=== PATIENT | female | born 1995 | race African-American/Black ===

== ENCOUNTER 2018-01-03 14:51 | Emergency (ER) | payer OTHER, SELFPAY ==
[2018-01-03 14:52] VITALS: BP 114/68; PULSE 75; RESP 16; TEMP 36.9; O2SAT 96; BMI 28.5
--- NOTE | 2018-01-03 15:20 | ED.VISSUMM ---
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 Stepping off her truck when leg inverted, states heard a crack. Was able to limp and get back to her truck. No paresthesias. History of growth plate fracture as a child, no surgical intervention. No history of gastric ulcers or kidney injury. No falls or head injuries. Physical Examination: General: Alert and oriented ?3, no acute distress HEENT: Normocephalic, atraumatic. Moist mucosa membranes Neck: supple, nontender. Cardiovascular: Regular rate and rhythm, no murmurs Respiratory: Normal breath sounds, symmetric, no distress Abdomen: Soft, nontender, nondistended Extremities: Left lower extremity: Negative logroll, no knee tenderness. There was tenderness to the distal third of the fibula along with lateral malleolus. No medial mild tenderness. No deformities. Mild swelling lateral malleolus. Skin intact. No foot tenderness. Neurovascular intact. Neuro: no focal neurological deficits. Test Results: Left ankle/tib-fib: No fracture or dislocation Emergency Department Course and Treatment: Patient given Motrin and ice. X-rays obtained and negative. Discussed ankle sprain with patient. Rice therapy. She does have prescription Motrin at home. She will be given work restrictions. She will follow with [facility]. Treatment Plan: [] Disposition: Discharge Impression: Left ankle sprain This note was generated with [employer] dictation software. It may contain incorrect words, spelling, and punctuation that were not noted in review of the chart prior to signing ED Disposition - Plan for ED Patient: Disposition: Home or Assisted Living Chief Complaint: Lower Extremity Injury Diagnosis: Left ankle sprain Instructions: ED Sprain Ankle W X Ray Referrals: Guanako Bobby MD [Primary Care Provider] - [facility] [[facility] PHYSICI[facility]] - 3-5 Days
[2018-01-03] MEDS: Ibuprofen 600 MG Tablet PO (15:24)
== END 2018-01-03 16:41 | disposition home or self-care (01) ==
PROVIDERS: Emergency Provider Emergency Medicine; Family Provider Pediatrics; PCP Family Medicine
DX: S93.402A Sprain of unspecified ligament of left ankle, initial encounter (principal); X50.1XXA Overexertion from prolonged static or awkward postures, initial encounter; Y93.89 Activity, other specified; Y92.9 Unspecified place or not applicable; Y99.0 Civilian activity done for income or pay; J45.909 Unspecified asthma, uncomplicated
CPT/HCPCS: 73590; 73610; 99285

== ENCOUNTER 2018-03-16 13:31 | Emergency (ER) | payer SELFPAY ==
[2018-03-16 13:32] VITALS: BP 163/76; PULSE 77; RESP 18; TEMP 36.5; O2SAT 99; BMI 24.9
--- NOTE | 2018-03-16 13:52 | ED.RN ---
PT REPORTS DIZZINESS X1WEEK, STATES LT ARM NUMBNESS/WEAKNESS X2DAYS.
--- NOTE | 2018-03-16 13:54 | EKG12_ITS ---
Test Reason : Blood Pressure : / mmHG Vent. Rate : 069 BPM Atrial Rate : 069 BPM P-R Int : 132 ms QRS Dur : 076 ms QT Int : 370 ms P-R-T Axes : 053 032 033 degrees QTc Int : 396 ms Normal sinus rhythm with sinus arrhythmia Normal ECG Confirmed by JUNAID PENA, KALE ([id number]), movie editor BELLA BRANDT ([id number]) on 03/18/2018 1:25:21 PM Referred By: JUAN Confirmed By:KALE QUIROGA MD
--- NOTE | 2018-03-16 13:54 | CT_ITS ---
STUDY: CT BRAIN WITHOUT CONTRAST REASON FOR EXAM: Female, 22 years old. One week history of vertigo and left arm numbness. RADIATION DOSAGE (If Supplied By Facility): CTDIvol = ( 44.99 ) mGy, DLP = ( 762.36 ) mGycm TECHNIQUE: Transaxial CT imaging of the brain was performed without administration of intravenous contrast material. Individualized dose optimization techniques were used for this CT. COMPARISON: None. FINDINGS: Normal soft tissue structures. Normal calvarium. Normal size ventricles and extra-axial spaces for the patient's age. Normal white matter tracts of the cerebral hemispheres. Normal basal ganglia and thalami. Normal brainstem. Normal cerebellum. There is no intracranial hemorrhage. There are no findings of an acute ischemic infarction. Normal visualized paranasal sinuses. CT/Brain/Head without Contrast IMPRESSION: Normal unenhanced CT scan of the brain. Electronically Signed: Jordy Lake MD at 15:13 EDT Tel [phone], Service support ,
[2018-03-16 14:34] LABS: Absolute Lymphocyte Count 2.66 X10^3/ul (0.83-4.51); Absolute Neutrophil Count 4.5 X10^3/uL (2.0-7.7); Basophil# 0.02 X10^3/uL; Basophil% 0.3 % (0-1); Eosinophil# 0.16 X10^3/uL; Eosinophils% 2.1 % (0-5); Hematocrit 43.3 % (37-47); Lymphocyte # 2.66 X10^3/ul (4.0); Lymphocyte % 34.5 % (19-41); Mean Corp Hgb Conc 32.3 g/gl (32-36); Mean Corpuscular Hgb 29.7 pg (27.0-32.0); Mean Corpuscular Volume 91.7 fL (81-99); Mean Platelet Vol. 10.7 fl (6.2-12.0); Monocyte# 0.36 X10^3/uL; Monocyte% 4.7 % (0-10); Neutrophil # 4.51 X10^3/uL (2.7-7.7); Neutrophil % 58.3 % (47-70); POSITIVE COUNT NO; POSITIVE DIFFERENTIAL NO; POSITIVE MORPHOLOGY NO; Platelet Count 228 K/mm3 (150-450); RBC Distribution Width CV 13.3 % (11.6-14.6); RBC Distribution Width SD 44.1 fl (35.1-43.9); Red Blood Count 4.72 M/mm3 (4.2-5.4); White Blood Count 7.7 K/mm3 (4.4-11.0)
[2018-03-16 14:46] LABS: Anion Gap 6 (5-15); BUN 12 mg/dL (7-18); BUN/Creat Ratio 13.1 RATIO (10-20); Calcium,Total 9.2 mg/dL (8.5-10.1); Chloride 105 mmol/L (98-107); Creatinine, Serum 0.92 mg/dL (0.55-1.02); EST Glomerular Filtration Rate 81 mL/min (>60); Est Glom Filt Rate - Afr Amer 98 mL/min (>60); Estimated Creatinine Clearance 82.83 ml/min; Glucose 90 mg/dL (74-106); Potassium 3.7 mmol/L (3.5-5.1); Sodium Level 140 mmol/L (136-145)
[2018-03-16 14:50] LABS: Pregnancy, Serum, hCG Quali. NEGATIVE Negative (0-9 Nonpreg)
--- NOTE | 2018-03-16 15:34 | ED.DCSUM_ITS ---
- ER Visit Summary Date of Service: 03/16/18 Chief Complaint: Off balance History of Present Illness: The patient is a [address] Bobby. She reports that starting 8 days ago she has had intermittent episodes where she feels off balance and is very into the left. Dates that this last approximately 30 seconds and occurs approximately every 30 minutes. She has not fallen. She denies any vertigo or double vision. Reports that she does feel that she is having difficulty concentrating. She reports that over the past 2 days with each of these episodes that her left arm is weak. She denies any numbness in this. She reports that this resolves after approximately 30 seconds as well. She denies any symptoms in her right arm or either leg. Patient denies any ringing or roaring in her ears. No ear pain. No change in her hearing. No nausea or vomiting. No other complaints. She denies a family history of multiple sclerosis. Physical Examination: Vitals: Stable. Afebrile. General: Well-nourished and well-developed. Head: Normocephalic atraumatic. Neck: Supple, no lymphadenopathy. No JVD. Nontender. Cardiovascular: Regular rate and rhythm. No murmurs. Respiratory: No respiratory distress. Clear to auscultation bilaterally. Abdominal: Soft, nontender, nondistended, normal bowel sounds. No guarding, rebound, or peritoneal signs. Back: Nontender. Extremities: Nontender, no edema. Skin: Normal color, no rash. Neurologic: Alert and oriented ?3. Cranial nerves II through XII are intact. Normal strength and sensation. No nystagmus. Psych: Normal affect. Test Results: CBC is normal. Chem-7 is normal. test is negative. CT brain is normal. Emergency Department Course and Treatment: Patient has had no symptoms while here. She is resting comfortably. Treatment Plan: I did discuss the patient that she will require further evaluation for this. Given the transient nature of this I feel that she is suitable for outpatient evaluation. She is instructed to follow-up with Dr. Emir Hernandez as soon as possible. Return to the emergency department for any worsening symptoms. Disposition: To home in improved and stable condition. Impression: 1. Intermittent disequilibrium, uncertain cause. This note was generated with [employer] software. It may contain incorrect words, spelling, and punctuation that were not noted in review of the chart prior to signing ED Disposition - Plan for ED Patient: Disposition: Home or Assisted Living Chief Complaint: Dizziness Instructions: Understanding Dizziness, Balance Problems, and Fainting Referrals: Guanako Bobby MD [Primary Care Provider] - As soon as possible
[2018-03-16 15:51] VITALS: BP 122/71; PULSE 71; RESP 16; O2SAT 99
== END 2018-03-16 15:52 | disposition home or self-care (01) ==
LOC: ED 14:07
PROVIDERS: Emergency Provider Emergency Medicine; Family Provider Family Medicine; PCP Family Medicine
DX: R26.81 Unsteadiness on feet (principal)
CPT/HCPCS: 70450; 80048; 84703; 85025; 93005; 99283; A4216

== ENCOUNTER 2021-01-06 19:46 | Emergency (ER) | payer MEDICAID, SELFPAY ==
[2021-01-06 19:46] VITALS: BP 135/64; PULSE 85; RESP 16; TEMP 36.6; O2SAT 97; BMI 27.4
[2021-01-06] MEDS: Ketorolac 30 MG/ML Syringe IM (20:15)
--- NOTE | 2021-01-06 20:34 | EDS_ITS ---
HPI History of Present Illness Chief Complaint: Back Informant: patient Narrative Narrative: Patient is a 25-year-old female with a past medical history of multiple sclerosis who presents to the emergency department for low back pain. She states a day prior she was moving from a sitting to standing position and felt something pop in her low back. It ache at that time but did not have severe pain. Throughout the course of the day it has becoming worse. Any s tanding or sitting makes her symptoms severe. Whenever she lies down and brings her knees to her chest this relieves the pain. No pain going down her legs. She denies any saddle anesthesia. No urinary incontinence. No fevers or chills. No abdominal pain. No chest pain or shortness of breath. She does have a history of back issues before. She has not tried taking anything for her symptoms. [facility] Medical History (Updated 01/06/21 @ 21:[address] Elver Mckeon DO) Asthma Home Medications albuterol sulfate [Ventolin HFA] 1 - 2 puff INHALATION Q4H PRN PRN #1 inhaler 03/28/15 [Rx Last Taken Unknown] naproxen [Naprosyn] 500 mg PO BID PRN #20 tab 01/06/21 [Rx Last Taken Unknown] prednisone 40 mg PO DAILY 4 Days #8 tab 01/06/21 [Rx Last Taken Unknown] Allergy/AdvReac Type Severity Reaction Status Date / Time diphenhydramine Allergy Other Verified 01/06/21 19:48 kiwi Allergy Anaphylaxis Verified 01/06/21 19:48 Surgical History (Updated 01/06/21 @ 20:01 by Jamila Molina) History of cholecystectomy Social History Smoking Status: Never smoker ROS ROS ED Constitutional Constitutional ED: Denies chills or fever(s) Eyes Eyes: Denies change in vision ENT ENT ED: Denies epistaxis or rhinorrhea Cardiovascular Cardiovascular: Denies chest pain or palpitations Respiratory/Chest Respiratory/Chest: Denies cough, dyspnea or dyspnea on exertion Gastrointestinal Gastrointestinal: Denies abdominal pain, diarrhea, nausea or vomiting Genitourinary Genitourinary ED: Denies dysuria, hematuria or urinary frequency Musculoskeletal Musculoskeletal: Reports back pain; Denies neck pain Integumentary Denies rash Neurologic Neurologic: Denies dizziness, headache(s) or weakness EXAM Physical Exam Const Vital Signs: 01/06/21 19:46 Temperature 97.9 F Temperature Source Temporal Pulse Rate 85 Respiratory Rate 16 Blood Pressure 135/64 H Blood Pressure Mean 87 Pulse Ox 97 Oxygen Delivery Method Room Air Positive well nourished and well developed General Appearance ED: well developed and NAD HEENT Reports normocephalic, head/scalp atraumatic and moist mucous membranes Eyes PERRL and EOMs intact bilaterally Neck supple General: Negative for tenderness Chest Wall inspection of chest normal Resp normal respiratory effort and clear to auscultation bilaterally Auscultation: Negative for rales, rhonchi or wheezes Cardio regular rate, regular rhythm and no murmurs GI normal to inspection, nondistended, normoactive bowel sounds and non-tender Palpation: soft; Negative for guarding or rebound tenderness present Back/Spine Back/Spine Narrative: No reproducible pain. No midline spine tenderness. No overlying skin changes. Extremity normal to inspection Extremity Narrative: 5 out of 5 muscle strength throughout. Sensation intact. General Extremety ED: Negative for edema or tenderness General Extremity: Negative for edema Neuro no sensory deficits noted Sensorium / Orientation: alert Motor Exam: strength 5/5 throughout Psych mental status grossly normal Skin no rashes or lesions noted MDM MDM MDM Narrative Medical decision making narrative: Patient presents to the emergency department for low back pain. This is nontraumatic. She did feel a pop in her back. She has no acute surgical spinal emergency signs or symptoms. No imaging indicated at this time. Will treat symptomatically with a dose of Toradol. On reexamination patient is feeling better. She feels like the pain is manageable. Will recommend symptomatic treatment at home. She does not want any sedating medications. She is given a prescription for Naprosyn and prednisone. Return precautions reviewed. She otherwise is to follow-up with her PCP. She is discharged home in stable condition. All questions were answered. Discharge Plan Triage Chief Complaint: Back ED Provider: Elver Mckeon Dx/Rx/DC Orders Clinical Impression: Low back pain Instructions: ED Back Pain (Acute or Chronic) Prescriptions: New naproxen [Naprosyn] 500 mg tablet 500 mg PO BID PRN (Reason: pain) Qty: 20 RF: 0 prednisone 20 mg tablet 40 mg PO DAILY 4 Days Qty: 8 RF: 0 No Action albuterol sulfate [Ventolin HFA] 1 INHALER inhaler 1 - 2 puff inhalation Q4H PRN PRN (Reason: Wheezing) Qty: 1 RF: 0 Primary Care Provider: Guanako Bobby Referrals: Guanako Bobby MD [Primary Care Provider] - 1 Week if not improving Disposition Disposition: Home, Self Care Discharge Date/Time: 01/06/21 21:35
== END 2021-01-06 21:35 | disposition home or self-care (01) ==
PROVIDERS: Emergency Provider Emergency Medicine; PCP Family Medicine
DX: M54.5 Low back pain (principal); G35 Multiple sclerosis; Z79.52 Long term (current) use of systemic steroids
CPT/HCPCS: 96372; 99282

== ENCOUNTER 2021-05-12 09:58 | Emergency (ER) | payer MEDICAID, SELFPAY ==
[2021-05-12 09:59] VITALS: BP 123/72; PULSE 68; RESP 16; TEMP 36.6; O2SAT 100; BMI 25.7
--- NOTE | 2021-05-12 10:53 | EX.ED.UPPERE ---
HPI History of Present Illness Chief Complaint: Laceration Narrative Narrative: Patient presenting for evaluation secondary to a left thumb laceration. Patient was cutting some fruit with a knife, she is right-hand dominant she suffered a laceration to her left thumb. Patient is unsure of her last tetanus shot. Bleeding is mild. Pain is mild. Worse with palpation and movement. Patient denies any immunosuppression or anticoagulant use. Review of systems otherwise negative. [facility] Medical History Asthma Multiple sclerosis Home Medications NK 05/12/21 [History Last Taken Unknown] Allergy/AdvReac Type Severity Reaction Status Date / Time diphenhydramine Allergy Other Verified 05/12/21 10:01 kiwi Allergy Anaphylaxis Verified 05/12/21 10:01 Surgical History History of cholecystectomy Social History Smoking Status: Never smoker ROS ROS ED Constitutional Constitutional ED: Denies fever(s) Cardiovascular Cardiovascular: Denies chest pain Respiratory/Chest Respiratory/Chest: Denies cough or dyspnea Integumentary Reports other Details: Laceration noted to the left thumb Hematologic/Lymphatic Hematologic/Lymphatic: Denies easy bleeding or easy bruising EXAM Physical Exam Const Vital Signs: 05/12/21 09:59 Temperature 97.9 F Temperature Source Temporal Pulse Rate 68 Respiratory Rate 16 Blood Pressure 123/72 H Blood Pressure Mean 89 Pulse Ox 100 Oxygen Delivery Method Room Air Positive well nourished and well developed General Appearance ED: well developed HEENT atraumatic Eyes EOMs intact bilaterally Neck full ROM Resp normal respiratory effort Cardio regular rate Extremity Extremity Narrative: Examination the patient's left thumb directly over the distal interphalangeal joint shows the patient to have a 1 cm semicircular laceration that appears like a skin flap. Normal flexion extension of the finger normal capillary refill normal distal sensation. Neuro oriented x3 Sensorium / Orientation: alert Psych mental status grossly normal Skin Rashes: no rashes MDM MDM MDM Narrative Medical decision making narrative: Patient presented with a left thumb laceration. Wound was addressed as noted in the procedure note. Patient will follow up with primary care for suture removal. Procedures Lacerations Thumb Lac: Length: 12 in Depth: Skin Shape: Flap Prep: Sterile Conditions Laceration repair: Irrigated, Lidocaine (2cc) and Local Number of Sutures/Warne: 3 Suture Information: Ethilon and 4-0 Comment: Wound was anesthetized with lidocaine. It was explored through full range of motion no evidence of violation of deep structures, no extensor tendon laceration, no foreign materials. Was approximated using #3 simple interrupted 4-0 nylon sutures. There was good hemostasis and good approximation. Discharge Plan Triage Chief Complaint: Laceration ED Provider: Mehul Albarado Dx/Rx/DC Orders Clinical Impression: Laceration of left thumb Instructions: ED Laceration, Hand: All Closures Prescriptions: No Action NK RF: 0 Primary Care Provider: Guanako Bobby Referrals: Guanako Bobby MD [Primary Care Provider] - 7 Days for suture removal Disposition Disposition: Home, Self Care
[2021-05-12] MEDS: Diphth,Pertuss(Acell),Tet Vac 0.5 ML Vial IM (10:57)
== END 2021-05-12 12:58 | disposition home or self-care (01) ==
PROVIDERS: Emergency Provider Emergency Medicine; PCP Family Medicine
DX: S61.012A Laceration without foreign body of left thumb without damage to nail, initial encounter (principal); W26.0XXA Contact with knife, initial encounter; Y93.G1 Activity, food preparation and clean up; Y92.9 Unspecified place or not applicable; Y99.9 Unspecified external cause status; G35 Multiple sclerosis
CPT/HCPCS: 12006; 90471; 90715; 99283